=== PATIENT | male | born 1970 | race American Indian/Alaskan Native ===

== ENCOUNTER 2018-11-20 21:30 | Inpatient (IN) | payer OTHER ==
--- NOTE | 2018-11-20 21:53 | Emergency Department Report ---
Blank Doc - Documentation Documentation: This is a 48-year-old male that presents with chest pain, SOB, and heart palpa tion. This initial assessment/diagnostic orders/clinical plan/treatment(s) is/are subject to change based on patient's health status, clinical progression and re- assessment by fellow clinical providers in the ED. Further treatment and workup at subsequent clinical providers discretion. Patient/guardians urged not to elope from the ED as their condition may be serious if not clinically assessed and managed. Initial orders include: 1- Patient sent to MAIN for further evaluation and treatment 2- labs 3- EKG 4- CXR
[2018-11-20 22:25] LABS: Basophils % (Auto) 0.7 % (0.0-1.8); Eosinophils # (Auto) 0.1 K/mm3 (0.0-0.4); Hematocrit 42.8 % (35.5-45.6); Hemoglobin 14.2 gm/dl (11.8-15.2); Lymphocytes # (Auto) 2.2 K/mm3 (1.2-5.4); Lymphocytes % (Auto) 31.1 % (13.4-35.0); Mean Corpuscular HGB Conc 33 % (32-34); Mean Corpuscular Volume 83 fl (84-94); Monocytes # (Auto) 0.7 K/mm3 (0.0-0.8); Monocytes % (Auto) 10.3 % (0.0-7.3); Platelet Count 225 K/mm3 (140-440); Red Blood Count 5.17 M/mm3 (3.65-5.03); Red Cell Distribution Width 13.2 % (13.2-15.2)
--- NOTE | 2018-11-20 22:33 | Emergency Department Report ---
HPI - General Chief Complaint: Arrhythmia/Palpitations Time Seen by Provider: 11/20/18 21:52 - HPI HPI: 48-year-old -British male presents to the emergency department with a chill fibrillation with RVR. The patient says that he has not been feeling himself since yesterday and has been feeling some generalized weakness and dizziness. He went to a fire station where they did a rhythm strip and he appeared to be in atrial fibrillation with RVR and he was told to come to the emergency department. He was driven in by his . He complains of a slight pressure to the chest but denies any palpitations, nausea, vomiting. He does appear to have one previous episode of this atrial fibrillation back in 2013 and was at this facility. He ended up having electrical cardioversion under sedation. He denies any tobacco or illicit drug use. 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 He has not taken anything for his symptoms prior to presentation today. ED Past Medical Hx - Past Medical History Hx Hypertension: Yes Hx Sickle Cell Disease: Yes (trait) Additional medical history: AFIB WITH CARDIOVERSION 2013 - Surgical History Past Surgical History?: No - Social History Smoking Status: Never Smoker Substance Use Type: Alcohol - Medications Home Medications: Home Medications Medication Instructions Recorded Confirmed Last Taken Type Lisinopril [Zestril TAB] 2.5 mg PO QDAY #30 tablet 10/16/13 04/15/14 04/15/14 Rx 40mg Metoprolol Xl [Metoprolol 100 mg PO QDAY #30 tablet 10/16/13 04/15/14 04/15/14 Rx SUCCINATE ER TAB] 100mg Warfarin [Coumadin] 5 mg PO QDAY #60 tablet 10/16/13 04/15/14 04/15/14 09:00 Rx 5mg ED Review of Systems ROS: Stated complaint: IRREGULAR HEART RATE/DIZZINESS Other details as noted in HPI Comment: All other systems reviewed and negative Constitutional: weakness. denies: chills, fever Eyes: denies: eye pain, vision change ENT: denies: ear pain, throat pain Respiratory: denies: cough, shortness of breath Cardiovascular: chest pain. denies: palpitations Gastrointestinal: denies: nausea, vomiting Genitourinary: denies: dysuria, frequency Musculoskeletal: denies: back pain, arthralgia Skin: denies: rash, lesions Neurological: denies: headache, weakness Physical Exam - Physical Exam Vital Signs: Vital Signs 11/20/18 21:53 Temperature 98.7 F Pulse Rate 66 Respiratory 18 Rate Blood Pressure 143/111 O2 Sat by Pulse 100 Oximetry Physical Exam: GENERAL: The patient is well-developed well-nourished. HENT: Normocephalic. Atraumatic. Patient has moist mucous membranes. EYES: Extraocular motions are intact. NECK: Supple. Trachea is midline. CHEST/LUNGS: Clear to auscultation. There is no respiratory distress noted. HEART/CARDIOVASCULAR: Irregular rhythm. There is mild to moderate tachycardia. ABDOMEN: Abdomen is soft, nontender. Patient has normal bowel sounds. There is no abdominal distention. SKIN: Skin is warm and dry. NEURO: The patient is awake, alert, and oriented. The patient is cooperative. The patient has no focal neurologic deficits. Normal speech. MUSCULOSKELETAL: There is no tenderness or deformity. There is no evidence of acute injury. ED Course Vital Signs 11/20/18 21:53 Temperature 98.7 F Pulse Rate 66 Respiratory 18 Rate Blood Pressure 143/111 O2 Sat by Pulse 100 Oximetry ED Medical Decision Making - Lab Data Result diagrams: 11/20/18 22:02 11/20/18 22:02 - EKG Data -: EKG Interpreted by Me - EKG Data When compared to previous EKG there are: no significant change Interpretation: unchanged when compared t (04/16/14), other (atrial fibrillation with RVR at 126 bpm, normal axis, normal intervals, PVCs, T-wave inversions inferior and lateral leads) - Radiology Data Radiology results: image reviewed interpreted by me: Chest x-ray does not show any acute process. There are no pleural effusions, obvious pneumonia and there is no pneumothorax. - Medical Decision Making This patient presents with atrial fibrillation with RVR. He responded well with Cardizem. He did not convert to sinus rhythm but the rate has been controlled with an IV dose of Cardizem. Chest x-ray does not show any acute process. Labs are thus far unremarkable including negative troponin and negative d-dimer. Normal thyroid function. The patient will be admitted to the hospital for further evaluation and treatment. He has been placed on a heparin drip. Accepted for admission by the hospitalist, Dr. England. - Differential Diagnosis PE, FL, Dysrythmia, Hyperthyroid Critical Care Time: Yes Critical care time in (mins) excluding proc time.: 35 Critical care attestation.: If time is entered above; I have spent that time in minutes in the direct care of this critically ill patient, excluding procedure time. Critical care time wa s spent on this patient and during his initial evaluation, multiple re- evaluations, ordering and interpretation of labs and imaging, ordering of heparin drip, discussion with the admitting hospitalist. Critical Care Time: 35 minutes ED Disposition Clinical Impression: Atrial fibrillation with RVR Disposition: OP ADMIT IP TO THIS HOSP Is pt being admited?: Yes Condition: Serious Time of Disposition: 23:51
[2018-11-20] MEDS ORDERED: CARDIZEM IV ONE (22:39)
--- NOTE | 2018-11-20 22:40 | XRay Report ---
CHEST 1 VIEW INDICATION: Chest Pain. COMPARISON: None. FINDINGS: Support devices: None. Heart: Within normal limits. Lungs/Pleura: No acute air space or interstitial disease. Additional findings: None. IMPRESSION: 1. No acute findings. Signer Name: Sky Sanchez MD Signed: 11/20/2018 10:36 PM Workstation Name: [id number]
[2018-11-20 22:41] LABS: BUN/Creatinine Ratio 12; Blood Urea Nitrogen 16 mg/dL (9-20); Calcium 9.5 mg/dL (8.4-10.2); Hemolysis Index 13
[2018-11-20 22:47] LABS: INR 1.1 (0.87-1.13); Partial Thromboplastin Time 25.2 Sec. (24.2-36.6)
[2018-11-20] MEDS ORDERED: HEPARIN 10,000 UNITS/10 ML IV ONE (23:26)
[2018-11-20] MEDS: HEPARIN/ 0.45% NACL-25,000 UNIT/500 ML 25,000 UNIT/500 ML BAG IV SCH (23:56)
[2018-11-21] MEDS ORDERED: TYLENOL PO PRN (00:02)
[2018-11-21] MEDS ORDERED: RESTORIL PO PRN (00:03)
[2018-11-21] MEDS ORDERED: ZOFRAN IV PRN (00:03)
[2018-11-21 00:47] LABS: Creatine Kinase MB 2.5 ng/mL (0.0-4.0)
--- NOTE | 2018-11-21 04:28 | History and Physical Report ---
CHIEF COMPLAINT: Palpitation. HISTORY OF PRESENT ILLNESS: The patient is a 48-year-old male who said he has been feeling weak and not feeling too good since yesterday and then noted that he was having some palpitation and decided to go to the fire department where he was checked and found to have irregular heartbeat with atrial fibrillation and rapid beat and was told to come to the Emergency Room. There was no history of chest pain. There was no history of diaphoresis, shortness of breath, nausea or vomiting. The patient denied history of taking any stimulant or medication prior to these symptoms. The patient said he had a similar episode of palpitation in 2013 during which he was found to have atrial fibrillation and had cardioversion under sedation that corrected his irregular heartbeat and ever since then he has never had any symptoms until yesterday, 11/20/2018. PAST MEDICAL HISTORY: Pertinent for hypertension, sickle cell trait, atrial fibrillation, status post cardioversion. PAST SURGICAL HISTORY: Unremarkable. FAMILY HISTORY: Noncontributory. SOCIAL HISTORY: The patient does not smoke, stated he drinks alcohol, but does not use illicit drugs. MEDICATIONS: The patient is on lisinopril 2.5 mg by mouth daily, metoprolol 100 mg by mouth daily and on Coumadin 5 mg by mouth daily. ALLERGIES: There are no known drug allergies. REVIEW OF SYSTEMS: CONSTITUTIONAL: There is no fever, no chills, no diaphoresis. HEENT: There is no headache or sore throat. CARDIOVASCULAR: There is no chest pain or orthopnea, but there is palpitation. RESPIRATORY: There is no shortness of breath or cough. GASTROINTESTINAL: There is no nausea, no vomiting, no abdominal pain, diarrhea or constipation. NEUROLOGICAL: Generalized weakness was noted. There is no dizziness and there is no altered mental status. MUSCULOSKELETAL: There is no joint pain or swelling. DERMATOLOGICAL: There is no skin rash or itching. GENITOURINARY: There is no dysuria, hematuria, or flank pain. Rest of system review is normal. PHYSICAL EXAMINATION: GENERAL: At the time of exam, the patient was found to be alert, oriented x 3 and not in acute distress. VITAL SIGNS: At the initial time of presentation showed temperature of 98.7 degrees Fahrenheit, pulse of 66, respirations 18, blood pressure 143/111, O2 sat of 100% on room air. HEENT: Showed pupils to be equal, round, reactive to light and accommodating. Extraocular muscles are intact. NECK: Supple with no JVD or carotid bruit. CARDIOVASCULAR: Showed first and second heart sounds that were heard with irregularly irregular rhythm and no rapid beat or gallops or murmurs was noted. RESPIRATORY: Showed good air entry on both sides of the lungs with no abnormal breath sounds. GASTROINTESTINAL: Show abdomen to be full, soft, nontender with no organomegaly or rigidity. NEUROLOGIC: Shows no focal deficit. MUSCULOSKELETAL: Show no joint swelling or tenderness. DERMATOLOGICAL: Showed no skin rash. GENITOURINARY: Showing no costovertebral angle tenderness. PERTINENT LABORATORY AND IMAGING STUDIES: The patient had chest x-ray done that shows no acute cardiopulmonary lesion and the patient's lab result shows CBC with normal white count, normal hemoglobin and normal hematocrit with CBC differential showing elevated monocyte count of 10.3%. The patient's coagulation studies were unremarkable. Chemistry came back unremarkable. The patient's cardiac enzymes were normal and the patient's TSH level came back normal. DIAGNOSIS: Atrial fibrillation with rapid ventricular rate. PLAN OF CARE: 1. The patient will be admitted to telemetry. 2. The patient will continue IV heparin started in the Emergency Room. 3. The patient will continue his home medication as shown in the medication reconciliation section and this includes Coumadin 5 mg by mouth daily. 4. The patient will have Cardiology consult with Dr. Prasanth Kelly this morning for management of atrial fibrillation with rapid ventricular rate. 5. The patient will have 2D echo done this morning. 6. The patient will have serial cardiac enzymes involving troponin, total CK, and CK-MB checked every 6 hours x 2 more levels. 7. The patient's diet will be low sodium diet. 8. The patient will be on p.r.n. medications like Tylenol 650 mg by mouth every 4 hours for fever and headache and Zofran 4 mg IV every 8 hours for nausea and vomiting. The patient will also be on temazepam 15 mg at bedtime for insomnia. 9. The patient will be on oxygen by nasal cannula at 2 liters per minute. 10. The patient will have Pharmacy adjust the dose of the Coumadin and the patient will have PT/INR done this morning. JOB# [id number] OCN/NTS
[2018-11-21 06:09] LABS: INR 1.11 (0.87-1.13)
[2018-11-21 06:36] LABS: Creatine Kinase MB 2.6 ng/mL (0.0-4.0)
[2018-11-21] MEDS: TOPROL XL PO SCH (09:55)
[2018-11-21] MEDS ORDERED: ZESTRIL PO SCH (10:00)
[2018-11-21] MEDS ORDERED: CORDARONE 150 MG in D5W 97 ML IV ONE (11:59)
[2018-11-21] MEDS: CORDARONE 900 MG in D5W 482 ML IV SCH ×2 (12:20→18:20)
--- NOTE | 2018-11-21 12:32 | Consultation ---
History of Present Illness Consult date: 11/21/18 Requesting physician: MAGALIE EDWARDS Consult reason: atrial fibrillation History of present illness: The pt is a 48 YO male with a past medical history of atrial fibrillation s/p successful DCCV in 2014, HTN, CMP. He has been seen in our office in the past by Dr. Beckford (last seen in 2014). He presented with c/o weakness and dizziness since Tuesday. He states he felt similar to the last time he experienced atrial fibrillation. He denies any chest pain, palpitations, SOB, n/v, diaphoresis or syncope. He has been taking lisinopril at home for HTN. He has not been taking any other medications. He states he used to take coumadin but this was discontinued in 2014 after successful cardioversion. Following arrival to ED, pt was found to be in AFib with RVR and was given IV cardizem bolus x 1 and HR improved. Pt was initiated on heparin gtt overnight. On evaluation, pt denies any current cardiac complaints although he remains in AFib with HR 120 - 130s. Echo done 04/2014 showed EF 55-60%, mild to mod TR. Echo done 09/2013 showed EF 25-30%, LA mod dilated, RA mildly dilated, mod MR, mod TR, RVSP 41mmHg. Past History Past Medical History: atrial fib, hypertension Social history: alcohol abuse (beer 2-3 times per week). denies: smoking Medications and Allergies Allergies Allergy/AdvReac Type Severity Reaction Status Date / Time No Known Allergies Allergy Verified 04/15/14 10:29 Home Medications Medication Instructions Recorded Confirmed Last Taken Type Benazepril-Hctz 20-25 mg Tab 20 - 25 mg PO DAILY 11/21/18 11/21/18 11/20/18 09:00 History Active Meds: Active Medications Acetaminophen (Tylenol) 650 mg PO Q4H PRN PRN Reason: Headache Heparin Sodium/Sodium Chloride (Heparin/ 0.45% Nacl-25,000 Unit/500 Ml) 25,000 unit in 500 mls @ 30 mls/hr IV TITR MIKEY; Protocol Last Titration: 11/21/18 07:16 Dose: 1,400 units/hr, 28 mls/hr Documented by: Amiodarone HCl 900 mg/ (Dextrose) 500 mls @ 33.333 mls/hr IV DIRECT MIKEY; Protocol Last Admin: 11/21/18 12:20 Dose: 1 mg/min, 33.333 mls/hr Documented by: Lisinopril (Zestril) 2.5 mg PO QDAY [facility] Last Admin: 11/21/18 09:56 Dose: 2.5 mg Documented by: Metoprolol Succinate (Toprol Xl) 100 mg PO QDAY [facility] Last Admin: 11/21/18 09:55 Dose: 100 mg Documented by: Ondansetron HCl (Zofran) 4 mg IV Q8H PRN PRN Reason: Nausea And Vomiting Temazepam (Restoril) 15 mg PO QHS PRN PRN Reason: Insomnia Review of Systems Constitutional: weakness (generalized), no weight loss, no weight gain, no fever, no chills, no sweats Ears, nose, mouth and throat: no ear pain, no nose pain, no sinus pressure, no sinus pain Cardiovascular: lightheadedness, high blood pressure, no chest pain, no orthopnea, no palpitations, no rapid/irregular heart beat, no edema, no syncope, no shortness of breath, no dyspnea on exertion Respiratory: no cough, no shortness of breath, no dyspnea on exertion, no congestion, no wheezing, no pain on inspiration Gastrointestinal: no abdominal pain, no nausea, no vomiting, no diarrhea, no constipation, no change in bowel habits Genitourinary Male: no dysuria, no hematuria, no flank pain, no discharge, no urinary frequency, no urinary hesitancy Musculoskeletal: no neck stiffness, no neck pain, no shooting arm pain, no arm numbness/tingling, no low back pain, no shooting leg pain Integumentary: no rash, no pruritis, no redness, no sores, no wounds Neurological: no head injury, no paralysis, no weakness, no parathesias, no numbness, no tingling, no seizures, no syncope Psychiatric: no anxiety Endocrine: no cold intolerance, no heat intolerance Hematologic/Lymphatic: no easy bruising, no easy bleeding Allergic/Immunologic: no urticaria, no wheezing Physical Examination Vital Signs Temp Pulse Resp BP Pulse Ox 98.7 F 66 18 143/111 100 11/20/18 21:53 11/20/18 21:53 11/20/18 21:53 11/20/18 21:53 11/20/18 21:53 General appearance: no acute distress HEENT: Positive: PERRL, Normocephaly, Mucus Membranes Moist Neck: Positive: neck supple, trachea midline Cardiac: Positive: irregularly irregular, S1/S2, Tachycardia Lungs: Positive: clear to auscultation Neuro: Positive: Grossly Intact Abdomen: Negative: Tender Skin: Negative: Rash Musculoskeletal: No Pain Extremities: Absent: edema Results 11/20/18 22:02 11/20/18 22:02 Cardiac Enzymes 11/21/18 11/21/18 Range/Units 00:18 05:21 CK-MB (CK-2) 2.5 2.6 (0.0-4.0) ng/mL Coagulation 11/20/18 11/21/18 Range/Units 22:02 05:21 PT 13.9 14.0 (12.2-14.9) Sec. INR 1.10 1.11 (0.87-1.13) APTT 25.2 (24.2-36.6) Sec. CBC 11/20/18 Range/Units 22:02 WBC 7.1 (4.5-11.0) K/mm3 RBC 5.17 H (3.65-5.03) M/mm3 Hgb 14.2 (11.8-15.2) gm/dl Hct 42.8 (35.5-45.6) % Plt Count 225 (140-440) K/mm3 Lymph # 2.2 (1.2-5.4) K/mm3 [place] # 0.7 (0.0-0.8) K/mm3 Eos # 0.1 (0.0-0.4) K/mm3 Baso # 0.0 (0.0-0.1) K/mm3 Comprehensive Metabolic Panel 11/20/18 Range/Units 22:02 Sodium 143 (137-145) mmol/L Potassium 3.6 (3.6-5.0) mmol/L Chloride 102.2 (98-107) mmol/L Carbon Dioxide 26 (22-30) mmol/L BUN 16 (9-20) mg/dL Creatinine 1.3 (0.8-1.5) mg/dL Glucose 99 (75-100) mg/dL Calcium 9.5 (8.4-10.2) mg/dL - Imaging and Cardiology Echo: report reviewed (Echo done 04/2014 showed EF 55-60%, mild to mod TR. ) EKG: report reviewed, image reviewed EKG interpretations - Telemetry EKG Rhythm: Atrial Fibrillation - EKG Supraventricular dysrhythmia: atrial fibrillation Assessment and Plan Will attempt to chemically convert pt to NSR overnight with IV amiodarone. Cont Toprol XL and heparin gtt. If unable to convert pt with medications, will plan for ASHA guided DCCV in AM. Indications, potential risks and benefits of ASHA guided DCCV reviewed with pt and he is agreeable to proceed. NPO after MN. TTE reviewed - EF 40-45%, mild to mod LVH, LA mildly dilated. The patient has been seen in conjunction with Dr. William Hubbard who agrees with the assessment and plan of care. - Patient Problems (1) Atrial fibrillation with RVR Current Visit: Yes Status: Acute (2) HTN (hypertension) Current Visit: Yes Status: Chronic (3) History of cardiomyopathy Current Visit: Yes Status: Chronic
--- NOTE | 2018-11-21 16:23 | Progress Note ---
Assessment and Plan Assessment and plan: --Maritza childress with rapid ventricular rate; on amiodarone drip Continue metoprolol, closely monitor Cardiology following --Anticoagulation with heparin drip; Transition to oral anticoagulants when patient is stable --Hypertension; moderate control Continue current antihypertensives and when necessary medications --Chronic systolic CHF/Cardiomyopathy; ejection fraction 40-45% Supportive care, cardiology following --DVT prophylaxis; patient is already on heparin drip. Monitor closely and adjust management as needed Plan of care reviewed with the patient and his nurse Cardiology consult and recommendations noted and appreciated History Interval history: Patient seen and examined in medical records reviewed Admitted with Maritza childress with rapid ventricular rate, on amiodarone drip Heart rate significantly improved, intermittent rapid ventricular rate Patient denies chest pain or shortness of breath Vital signs noted Hospitalist Physical - Constitutional Vitals: Temp Pulse Resp BP Pulse Ox 98.7 F 104 H 16 132/72 97 11/21/18 09:58 11/21/18 09:56 11/21/18 09:58 11/21/18 09:58 11/21/18 09:54 General appearance: Present: no acute distress, well-nourished, obese - EENT Eyes: Present: PERRL, EOM intact - Neck Neck: Present: supple, normal ROM - Respiratory Respiratory effort: normal Respiratory: bilateral: diminished, negative: rales, rhonchi, wheezing - Cardiovascular Rhythm: irregularly irregular Heart Sounds: Present: S1 & S2 - Extremities Extremities: no ischemia, pulses intact - Abdominal General gastrointestinal: soft, non-tender, non-distended, normal bowel sounds - Integumentary Integumentary: Present: clear, warm - Psychiatric Psychiatric: appropriate mood/affect, cooperative - Neurologic Neurologic: CNII-XII intact, moves all extremities Results - Labs CBC & Chem 7: 11/22/18 03:39 11/22/18 03:39 Labs: Laboratory Last Values WBC 7.1 K/mm3 (4.5-11.0) 11/20/18 22:02 RBC 5.17 M/mm3 (3.65-5.03) H 11/20/18 22:02 Hgb 14.2 gm/dl (11.8-15.2) 11/20/18 22:02 Hct 42.8 % (35.5-45.6) 11/20/18 22:02 MCV 83 fl (84-94) L 11/20/18 22:02 MCH 28 pg (28-32) 11/20/18 22:02 MCHC 33 % (32-34) 11/20/18 22:02 RDW 13.2 % (13.2-15.2) 11/20/18 22:02 Plt Count 225 K/mm3 (140-440) 11/20/18 22:02 Lymph % (Auto) 31.1 % (13.4-35.0) 11/20/18 22:02 [place] % (Auto) 10.3 % (0.0-7.3) H 11/20/18 22:02 Eos % (Auto) 1.0 % (0.0-4.3) 11/20/18 22:02 Baso % (Auto) 0.7 % (0.0-1.8) 11/20/18 22:02 Lymph # 2.2 K/mm3 (1.2-5.4) 11/20/18 22:02 [place] # 0.7 K/mm3 (0.0-0.8) 11/20/18 22:02 Eos # 0.1 K/mm3 (0.0-0.4) 11/20/18 22:02 Baso # 0.0 K/mm3 (0.0-0.1) 11/20/18 22:02 Seg Neutrophils % 56.9 % (40.0-70.0) 11/20/18 22:02 Seg Neutrophils # 4.1 K/mm3 (1.8-7.7) 11/20/18 22:02 PT 14.0 Sec. (12.2-14.9) 11/21/18 05:21 INR 1.11 (0.87-1.13) 11/21/18 05:21 APTT 25.2 Sec. (24.2-36.6) 11/20/18 22:02 182.54 ng/mlDDU (0-234) 11/20/18 22:46 Heparin Anti-Xa Level 0.48 U.I./ml (0.3-0.7) 11/21/18 12:57 Sodium 143 mmol/L (137-145) 11/20/18 22:02 Potassium 3.6 mmol/L (3.6-5.0) 11/20/18 22:02 Chloride 102.2 mmol/L (98-107) 11/20/18 22:02 Carbon Dioxide 26 mmol/L (22-30) 11/20/18 22:02 18 mmol/L 11/20/18 22:02 BUN 16 mg/dL (9-20) 11/20/18 22:02 1.3 mg/dL (0.8-1.5) 11/20/18 22:02 Estimated GFR > 60 ml/min 11/20/18 22:02 12 % 11/20/18 22:02 Glucose 99 mg/dL (75-100) 11/20/18 22:02 Calcium 9.5 mg/dL (8.4-10.2) 11/20/18 22:02 Magnesium 2.00 mg/dL (1.7-2.3) 11/21/18 12:57 118 units/L (55-170) 11/21/18 05:21 CK-MB (CK-2) 2.6 ng/mL (0.0-4.0) 11/21/18 05:21 CK-MB (CK-2) Rel Index 2.2 (0-4) 11/21/18 05:21 < 0.010 ng/mL (0.00-0.029) 11/21/18 05:21 TSH 3.260 mlU/mL (0.270-4.200) 11/20/18 22:46 Active Medications - Current Medications Current Medications: Generic Name Dose Route Start Last Admin Trade Name Freq PRN Reason Stop Dose Admin Acetaminophen 650 mg 11/21/18 00:02 Tylenol PO Q4H PRN Headache Heparin Sodium/Sodium Chloride 25,000 unit in 500 mls @ 30 mls/hr 11/20/18 23:45 11/21/18 07:16 Heparin/ 0.45% Nacl-25,000 Unit/500 Ml IV 1,400 units/hr TITR MIKEY 28 mls/hr Titration Protocol 1,500 UNITS/HR Amiodarone HCl 900 mg/ 500 mls @ 33.333 mls/hr 11/21/18 11:30 11/21/18 12:20 Dextrose IV 1 mg/min DIRECT MIKEY 33.333 mls/hr Administration Protocol 1 MG/MIN Metoprolol Succinate 100 mg 11/21/18 10:00 11/21/18 09:55 Toprol Xl PO 100 mg QDAY MIKEY Administration Ondansetron HCl 4 mg 11/21/18 00:03 Zofran IV Q8H PRN Nausea And Vomiting Temazepam 15 mg 11/21/18 00:03 Restoril PO QHS PRN Insomnia Nutrition/Malnutrition Assess - Dietary Evaluation Nutrition/Malnutrition Findings: Nutrition Notes Start: 11/21/18 09:49 Freq: Status: Active Protocol: Document 11/21/18 09:49 EMILIANO (Rec: 11/21/18 10:10 [facility]-[email or web address]) Co-Sign 11/21/18 09:49 NHALL Nutrition Notes Need for Assessment generated from: Education Initial or Follow up Brief Note Pertinent Medications Coumadin Subjective/Other Information Pt stated that he was not on coumadin. Has taken it before and is aware of high vitamin K foods.
[2018-11-21] MEDS ORDERED: COUMADIN PO SCH (17:00)
[2018-11-21] MEDS: HEPARIN/ 0.45% NACL-25,000 UNIT/500 ML 25,000 UNIT/500 ML BAG IV SCH (18:12)
[2018-11-22 05:25] LABS: Hematocrit 42.6 % (35.5-45.6); Hemoglobin 13.8 gm/dl (11.8-15.2)
[2018-11-22] MEDS: CORDARONE 900 MG in D5W 482 ML IV SCH ×2 (05:25→08:47)
[2018-11-22 05:34] LABS: INR 1.07 (0.87-1.13)
[2018-11-22 05:49] LABS: Alanine Aminotransferase 21 units/L (7-56); Albumin 3.9 g/dL (3.9-5); BUN/Creatinine Ratio 12; Blood Urea Nitrogen 13 mg/dL (9-20); Calcium 9.1 mg/dL (8.4-10.2); Hemolysis Index 17
[2018-11-22] MEDS: HEPARIN/ 0.45% NACL-25,000 UNIT/500 ML 25,000 UNIT/500 ML BAG IV SCH (09:22)
[2018-11-22] MEDS ORDERED: DIPRIVAN 10 MG/ML IV ONE ×2 (09:43)
[2018-11-22] MEDS ORDERED: HURRICAINE ONE 20% TOPICAL SPRAY MM NR (10:00)
[2018-11-22] MEDS ORDERED: NACL 0.9% 500 ML 500 ML IV SCH (10:00)
--- NOTE | 2018-11-22 10:10 | Anesthesia Day of Surgery ---
Anesthesia Day of Surgery - Day of Surgery Patient Examined: Yes Patient H&P Reviewed: Yes Patient is NPO: Yes
--- NOTE | 2018-11-22 10:10 | Anesthesia Consultation ---
Anesthesia Consult and Med Hx Date of service: 11/22/18 - Airway Anesthetic Teeth Evaluation: Good ROM Head & Neck: Adequate Mental/Hyoid Distance: Adequate Mallampati Class: Class II Intubation Access Assessment: Probably Good - Pulmonary Exam CTA: Yes - Cardiac Exam Cardiac Exam: No Murmur (irregular rhythm) - Pre-Operative Health Status ASA Pre-Surgery Classification: ASA3 Proposed Anesthetic Plan: MAC - Pulmonary Hx Smoking: Yes Hx Respiratory Symptoms: No - Cardiovascular System Hx Hypertension: Yes Hx Heart Attack/AMI: No Hx Percutaneous Transluminal Coronary Angioplasty (PTCA): No Hx Cardia Arrhythmia: Yes (afib with RVR; currently rate controlled) Hx Pacemaker: No Hx Internal Defibrillator: No - Central Nervous System CVA: No - Gastrointestinal Hx Gastroesophageal Reflux Disease: No - Endocrine Hx Renal Disease: No Hx Liver Disease: No Hx Insulin Dependent Diabetes: No Hx Non-Insulin Dependent Diabetes: No Hx Thyroid Disease: No - Other Systems Hx Obesity: Yes
[2018-11-22 11:26] VITALS: BP 101/65
--- NOTE | 2018-11-22 11:50 | Progress Note ---
Assessment and Plan S/p ASHA guided DCCV this AM with successful conversion to NSR. Currently stable cardiac status. Initiate Eliquis and continue Toprol XL. Pt may discharge home from cardiology standpoint. Follow up in our [place] office with Dr. Beckford on 12/08/2018 @ 2:45. The patient has been seen in conjunction with Dr. William Hubbard who agrees with the assessment and plan of care. - Patient Problems (1) Atrial fibrillation with RVR Current Visit: Yes Status: Acute (2) HTN (hypertension) Current Visit: Yes Status: Chronic (3) History of cardiomyopathy Current Visit: Yes Status: Chronic Subjective Date of service: 11/22/18 Principal diagnosis: afib Interval history: pt for ASHA guided DCCV this AM, no current cardiac complaints. tele reviewed - pt in AFib with CVR overnight. Objective Last Vital Signs Temp 97.8 F 11/22/18 10:31 Pulse 52 L 11/22/18 11:15 Resp 21 11/22/18 11:15 BP 101/65 11/22/18 11:15 Pulse Ox 100 11/22/18 11:15 - Physical Examination General: No Apparent Distress HEENT: Positive: PERRL, Normocephaly, Mucus Membranes Moist Neck: Positive: neck supple, trachea midline Cardiac: Positive: irregularly irregular, S1/S2 Lungs: Positive: clear to auscultation Neuro: Positive: Grossly Intact Abdomen: Negative: Tender Skin: Negative: Rash Musculoskeletal: No Pain Extremities: Absent: edema - Labs and Meds Cardiac Enzymes 11/22/18 Range/Units 03:39 AST 15 (5-40) units/L Coagulation 11/22/18 Range/Units 03:39 PT 13.6 (12.2-14.9) Sec. INR 1.07 (0.87-1.13) CBC 11/22/18 Range/Units 03:39 Hgb 13.8 (11.8-15.2) gm/dl Hct 42.6 (35.5-45.6) % Plt Count 194 (140-440) K/mm3 Comprehensive Metabolic Panel 11/22/18 Range/Units 03:39 Sodium 143 (137-145) mmol/L Potassium 3.4 L (3.6-5.0) mmol/L Chloride 103.5 (98-107) mmol/L Carbon Dioxide 26 (22-30) mmol/L BUN 13 (9-20) mg/dL Creatinine 1.1 (0.8-1.5) mg/dL Glucose 96 (75-100) mg/dL Calcium 9.1 (8.4-10.2) mg/dL AST 15 (5-40) units/L ALT 21 (7-56) units/L Alkaline Phosphatase 57 (35-129) units/L Total Protein 6.6 (6.3-8.2) g/dL Albumin 3.9 (3.9-5) g/dL - Imaging and Cardiology EKG: report reviewed, image reviewed Echo: report reviewed (Echo done 04/2014 showed EF 55-60%, mild to mod TR. ) - Telemetry EKG Rhythm: Atrial Fibrillation
--- NOTE | 2018-11-22 12:52 | Discharge Summary ---
Providers - Providers Date of Admission: 11/20/18 23:58 Date of discharge: 11/22/18 Attending physician: DAVID DODGE 11/21/18 06:00 Consult to Physician [CONS] Routine Comment: Consulting Provider: BELLA BARRAGAN Physician Instructions: Reason For Exam: A.FIB WITH RVR Primary care physician: SRIRAM AGUERO Hospitalization Condition: Serious Disposition: DC-01 TO HOME OR SELFCARE Time spent for discharge: 32 min Core Measure Documentation - Palliative Care Palliative Care/ Comfort Measures: Not Applicable - Core Measures Any of the following diagnoses?: none Exam - Constitutional Vitals: Temp Pulse Resp BP Pulse Ox 97.8 F 52 L 21 101/65 100 11/22/18 10:31 11/22/18 11:15 11/22/18 11:15 11/22/18 11:15 11/22/18 11:15 General appearance: Present: no acute distress, well-nourished - EENT Eyes: Present: PERRL, EOM intact - Neck Neck: Present: supple, normal ROM - Respiratory Respiratory effort: normal Respiratory: negative: rales, rhonchi, wheezing - Cardiovascular Rhythm: regular Heart Sounds: Present: S1 & S2 - Extremities Extremities: no ischemia, No edema - Abdominal General gastrointestinal: Present: soft, non-tender, non-distended, normal bowel sounds - Integumentary Integumentary: Present: clear, warm - Musculoskeletal Musculoskeletal: strength equal bilaterally - Psychiatric Psychiatric: appropriate mood/affect, cooperative - Neurologic Neurologic: CNII-XII intact, moves all extremities Plan Activity: no restrictions Diet: regular Additional Instructions: Follow up in our [place] office with Dr. Sneed on 12/08/2018 @ 2:45. If chest pain ,shortness of breath or palpitations, contact [facility] CLAUDIA [Referring] - 3-5 Days DARRION SNEED MD [Staff Physician] - 12/08/18 (Follow up in our [place] office with Dr. Sneed on 12/08/2018 @ 2:45. ) Forms: Warfarin Discharge Instruction Prescriptions: Apixaban [Eliquis] 5 mg PO Q12HR #60 tablet Metoprolol Xl [Metoprolol SUCCINATE ER TAB] 50 mg PO BID #60 tablet
[2018-11-22] MEDS: TOPROL XL PO SCH (12:58)
[2018-11-22] MEDS ORDERED: K-DUR PO ONE (14:03)
[2018-11-22] MEDS ORDERED: ELIQUIS PO SCH (22:00)
== END 2018-11-22 15:09 | disposition home or self-care (01) | DRG 309 ==
LOC: ED 21:30 → 4A 23:58
PROVIDERS: ADMIT Internal Medicine; ATTEND Internal Medicine
PROC: 5A2204Z Restoration of Cardiac Rhythm, Single (ICD-10-PCS; principal; 2018-11-22)
DX: I48.91 Unspecified atrial fibrillation (principal); I50.22 Chronic systolic (congestive) heart failure; I42.9 Cardiomyopathy, unspecified; I08.1 Rheumatic disorders of both mitral and tricuspid valves; I11.0 Hypertensive heart disease with heart failure; E66.9 Obesity, unspecified; Z68.30 Body mass index [BMI] 30.0-30.9, adult; Z79.01 Long term (current) use of anticoagulants
CPT/HCPCS: 36415; 71045; 80048; 80053; 82550; 82553; 83735; 84443; 84484; 85014; 85018; 85025; 85049; 85379; 85520; 85610; 85730; 93005; 93010; 93306; 93312; 93320; 93325; G0378; J0282; J1644; J2704; J7040; J7060

== ENCOUNTER 2021-10-12 14:35 | Emergency (ER) | payer OTHER ==
[2021-10-12] MEDS ORDERED: CYCLOBENZAPRINE 10 MG TAB PO ONE ×2 (14:55→17:15)
[2021-10-12] MEDS ORDERED: ACETAMINOPHEN W/CODEINE 300-30 MG TAB PO ONE ×2 (14:55→17:15)
[2021-10-12] MEDS ORDERED: KETOROLAC 10 MG TAB PO ONE ×2 (14:55→17:15)
[2021-10-12] MEDS ORDERED: predniSONE 20 MG TAB PO ONE ×2 (14:55→17:15)
[2021-10-12 17:21] VITALS: BP 135/87
--- NOTE | 2021-10-12 17:21 | Emergency Department Report ---
ED Neck Pain/Injury HPI - General Chief Complaint: Back Pain/Injury Stated Complaint: NECK/SHOULDER PAIN Time Seen by Provider: 10/12/21 14:55 Mode of arrival: Ambulatory Limitations: No Limitations - History of Present Illness Initial Comments: 51 yo male presents to ed for evaluation of left neck and shoulder pain. He states that for the past over a week, he has had increasing pain with areas that is worse with movement of head and left arm. He denies any injury or trauma. He denies fever, cp, sob, n/v, or dizziness. MD Complaint: neck pain, other (left shoulder. ) -: Gradual, week(s) (1.5) Place: home Severity: severe Severity scale (0 -10): 9 Quality: aching Consistency: constant Worsens With: movement of extremity, movement of neck Associated Symptoms: denies: headache, fever, numbness, tingling, weakness, vertigo, difficulty walking, swollen glands, difficulty swallowing, nausea, vomiting Treatments Prior to Arrival: Ibuprofen (with some improvement) - Related Data Previous Rx's Medication Instructions Recorded Last Taken Type Apixaban [Eliquis] 5 mg PO Q12HR #60 tablet 11/22/18 Unknown Rx Metoprolol Xl [Metoprolol 50 mg PO BID #60 tablet 11/22/18 Unknown Rx SUCCINATE ER TAB] Ketorolac [Toradol] 10 mg PO Q6H PRN #12 tab 10/12/21 Unknown Rx Lidocaine [Lidoderm] 1 each TP DAILY PRN #10 patch 10/12/21 Unknown Rx methOCARBAMOL [Robaxin TAB] 750 mg PO Q8H PRN #30 tab 10/12/21 Unknown Rx Allergies Allergy/AdvReac Type Severity Reaction Status Date / Time No Known Allergies Allergy Verified 04/15/14 10:29 ED Review of Systems ROS: Stated complaint: NECK/SHOULDER PAIN Other details as noted in HPI Comment: All other systems reviewed and negative Constitutional: denies: chills, fever, malaise, weakness Eyes: denies: eye pain, eye discharge, vision change ENT: denies: throat pain, congestion Respiratory: denies: cough, shortness of breath Cardiovascular: denies: chest pain, palpitations Gastrointestinal: denies: abdominal pain, nausea, vomiting Genitourinary: denies: urgency, dysuria Musculoskeletal: denies: back pain Skin: denies: rash, lesions Neurological: denies: headache, weakness, numbness, paresthesias, confusion, abnormal gait, vertigo ED Past Medical Hx - Past Medical History Hx Hypertension: Yes Hx Heart Attack/AMI: No Hx Liver Disease: No Hx Renal Disease: No Hx Sickle Cell Disease: Yes (trait) Additional medical history: AFIB WITH CARDIOVERSION 2013 - Surgical History Hx Pacemaker: No Hx Internal Defibrillator: No - Social History Smoking Status: Never Smoker - Medications Home Medications: Home Medications Medication Instructions Recorded Confirmed Last Taken Type Apixaban [Eliquis] 5 mg PO Q12HR #60 tablet 11/22/18 Unknown Rx Metoprolol Xl [Metoprolol 50 mg PO BID #60 tablet 11/22/18 Unknown Rx SUCCINATE ER TAB] Ketorolac [Toradol] 10 mg PO Q6H PRN #12 tab 10/12/21 Unknown Rx Lidocaine [Lidoderm] 1 each TP DAILY PRN #10 patch 10/12/21 Unknown Rx methOCARBAMOL [Robaxin TAB] 750 mg PO Q8H PRN #30 tab 10/12/21 Unknown Rx ED Physical Exam - General Limitations: No Limitations General appearance: alert, in no apparent distress - Head Head exam: Present: atraumatic, normocephalic - Eye Eye exam: Present: normal appearance. Absent: conjunctival injection - Neck Neck exam: Present: normal inspection, tenderness (left side only, no midliine vertbral tenderness noted. ). Absent: lymphadenopathy - Respiratory Respiratory exam: Absent: respiratory distress - Cardiovascular Cardiovascular Exam: Present: regular rate - GI/Abdominal GI/Abdominal exam: Absent: distended - Extremities Exam Extremities exam: Present: normal inspection - Expanded Upper Extremity Exam Left Shoulder Exam: Present: normal inspection, tenderness, tenderness over AC joint. Absent: full ROM, swelling, abrasion, laceration, ecchymosis, deformity, crepidus, dislocation, erythema Upper Arm exam: Present: normal inspection Hand Wrist exam: Present: normal inspection Vascular: Present: normal capillary refill, radial pulse. Absent: vascular compromise, Pallo - Back Exam Back exam: Present: normal inspection, full ROM (left upper only, worse with movement and palpation. ), tenderness (left upper only). Absent: vertebral tenderness - Neurological Exam Neurological exam: Present: alert, oriented X3, normal gait - Psychiatric Psychiatric exam: Present: normal affect, normal mood - Skin Skin exam: Present: warm, dry, intact, normal color ED Course Vital Signs 10/12/21 10/12/21 14:53 17:20 Temperature 97.9 F 98.9 F Pulse Rate 82 72 Respiratory 14 18 Rate Blood Pressure 136/87 135/87 [Right] O2 Sat by Pulse 98 98 Oximetry ED Medical Decision Making - Medical Decision Making 51 yo male presents to ed for evaluation of left neck and shoulder pain. He states that for the past over a week, he has had increasing pain with areas that is worse with movement of head and left arm. He denies any injury or trauma. He denies fever, cp, sob, n/v, or dizziness. Physical exam consistent with musculoskeletal pain only, and patient will be treated with toradol, flexeril, prednisone, and tylenol #3. He will be discharged home with Toradol, Robaxin, and Lidoderm patches to use as directed. He is advised to follow up with his pcp if no improvement or worsening symptoms and return to ed as needed. He verbalized understanding of and agreement with plan of care. Critical care attestation.: If time is entered above; I have spent that time in minutes in the direct care of this critically ill patient, excluding procedure time. ED Disposition Clinical Impression: Neck pain, Neck pain on left side Disposition: HOME / SELF CARE / HOMELESS Is pt being admited?: No Does the pt Need Aspirin: No Condition: Stable Instructions: Shoulder Pain, [id number], Musculoskeletal Pain, Cervical Sprain, [id number] Additional Instructions: Take medications as prescribed. Follow-up with your primary care provider if no improvement or worsening symptoms. Return to the emergency department as needed. Prescriptions: Lidocaine [Lidoderm] 1 each TP DAILY PRN #10 patch PRN Reason: Pain , Severe (7-10) methOCARBAMOL [Robaxin TAB] 750 mg PO Q8H PRN #30 tab PRN Reason: Muscle Spasm Ketorolac [Toradol] 10 mg PO Q6H PRN #12 tab PRN Reason: Pain Referrals: CANDELARIA JACKSON MD [Staff Physician] - 3-5 Days Forms: Work/School Release Form(ED) Time of Disposition: 17:19
== END 2021-10-12 16:06 | disposition home or self-care (01) ==
LOC: ED 14:35
DX: M54.2 Cervicalgia (principal); M25.512 Pain in left shoulder; I10 Essential (primary) hypertension; Z79.899 Other long term (current) drug therapy
CPT/HCPCS: 99282